=== PATIENT | male | born 1995 | race Asian ===

== ENCOUNTER 2018-11-25 00:32 | Emergency (ER) | payer SELFPAY ==
[~2018-11-25] VITALS: Ht 170.2 cm; Wt 63.5 kg
[2018-11-25] MEDS ORDERED: ONDANSETRON 4 MG (ZOFRAN) ORAL DISSOLVE TAB ONE (00:47)
--- NOTE | 2018-11-25 00:47 | ED GI ---
General Chief Complaint: Abdominal/GI Problems Stated Complaint: VOMITING Source of Information: Patient, Other Exam Limitations: Language Barrier ([place] as a second one which) History of Present Illness Date Seen by Provider: Nov 25, 2018 Time Seen by Provider: 00:37 Initial Comments The patient presents to ER by private conveyance with significant other chief complaint of one half to 2 hours of nausea vomiting headache. He denies any coughing. Does not have anything medical history surgeries, history of fever or chills are exposure to sick people that he knows of. He has not use any Tylenol ibuprofen or other medicines. He does not take anything routinely nor have any surgical history. He is not having any pain in his abdomen. No diarrhea or constipation. Allergies and Home Medications Allergies Coded Allergies: No Known Drug Allergies (Unverified , 11/25/18) Patient Home Medication List Home Medication List Reviewed: Yes Review of Systems Review of Systems Constitutional: No chills, No fever, No malaise EENTM: No Blurred Vision, No Double Vision Respiratory: Denies Cough, Denies Shortness of Air Cardiovascular: Denies Chest Pain, Denies Lightheadedness Gastrointestinal: Denies Constipated, Denies Diarrhea; Nausea, Vomiting Genitourinary: Denies Discharge, Denies Drainage Musculoskeletal: No back pain, No joint pain Past [id number]-[place] Hx Patient Social History Alcohol Use: Denies Use Recreational Drug Use: No Smoking Status: Never a Smoker Recent Foreign Travel: No Contact w/Someone Who Travel: No Physical Exam Vital Signs Vital Signs - First Documented 11/25/18 00:35 Temp 97.1 Pulse 95 Resp 20 B/P (MAP) 123/75 (91) Pulse Ox 100 O2 Delivery Room Air Capillary Refill : Height/Weight/BMI Height: '" Weight: lbs. oz. kg; BMI Method: General Appearance: WD/WN, no apparent distress HEENT: PERRL/EOMI, normal ENT inspection, TMs normal, pharynx normal Neck: non-tender, full range of motion, supple, normal inspection Respiratory: chest non-tender, lungs clear, normal breath sounds, no respiratory distress, no accessory muscle use Cardiovascular: normal peripheral pulses, regular rate, rhythm, no edema Gastrointestinal: normal bowel sounds, non tender, soft, no organomegaly Neurologic/Psychiatric: alert, oriented x 3 Skin: normal color, warm/dry Progress/Results/Core Measures Results/Orders My Orders Orders - MY PATEL Ondansetron Oral Dissolve Tab (Zofran (11/25/18 00:47) Promethazine Injection (Phenergan Injec (11/25/18 01:30) Medications Given in ED Current Medications Medications Dose Ordered Sig/Jeremi Route Start Time Stop Time Status Last Admin Dose Admin Ondansetron HCl 4 mg STK-MED ONCE .ROUTE 11/25/18 00:47 11/25/18 00:49 DC 11/25/18 00:48 4 MG Promethazine HCl 25 mg ONCE ONCE IM 11/25/18 01:30 11/25/18 01:31 DC 11/25/18 01:30 25 MG Vital Signs/I&O 11/25/18 00:35 Temp 97.1 Pulse 95 Resp 20 B/P (MAP) 123/75 (91) Pulse Ox 100 O2 Delivery Room Air Departure Impression Primary Impression: Gastroenteritis and colitis, viral Disposition: HOME, SELF-CARE Condition: Stable Departure-Patient Inst. Decision time for Depature: 02:04 Referrals: [facility] (PCP/Family) Primary Care Physician Patient Instructions: Viral Gastroenteritis, Adult (DC) Add. Discharge Instructions: Drink plenty of fluids and allow the diarrhea to go. If your diarrhea goes on for more than 24-48 hours you can use Imodium 2 tablets followed by one tablet every 4 hours. Use 1-2 tablets of Zofran every 6 hours as needed for nausea. Use one tablet of Phenergan every 6 hours as needed for nausea. If your symptoms go on for more than 7-10 days follow-up with primary care or go to student [facility] for further evaluation. All discharge instructions reviewed with patient and/or family. Voiced understanding. Scripts Promethazine HCl (Promethazine Tablet) 25 Mg Tablet 25 MG PO Q6H PRN for NAUSEA/VOMITING, #15 TAB 0 Refills Prov: MY PATEL 11/25/18 Ondansetron (Ondansetron Odt) 4 Mg Tab.rapdis 4 MG PO Q6H PRN for NAUSEA/VOMITING, #15 TAB 0 Refills Prov: MY PATEL 11/25/18 Work/School Note: School/Childcare Release Date Seen in the Emergency Department: Nov 25, 2018 Time Dismissed from Emergency Department: 02:08 Return to School: Nov 28, 2018 Restrictions: No Restrictions MY PATEL Nov 25, 2018 00:47
[2018-11-25] MEDS ORDERED: PROMETHAZINE INJ 25 MG/ML (PHENERGAN) AMP IM ONE (01:30)
[2018-11-25] MEDS ORDERED: RX-ONDANSETRON 4 MG ODT (ZOFRAN) PPK #4 PO STA (02:03)
[2018-11-25] MEDS ORDERED: ONDA4TAB11 PO (02:08)
[2018-11-25] MEDS ORDERED: PROM25TA14 PO (02:08)
[2018-11-25 02:10] VITALS: BP 132/78
== END 2018-11-25 02:13 | disposition home or self-care (01) ==
LOC: ER 00:37
DX: A08.4 Viral intestinal infection, unspecified (principal)
CPT/HCPCS: 99284